=== PATIENT | female | born 1955 | race Caucasian/White ===

== ENCOUNTER → 2018-01-05 | Outpatient (CLI) | payer OTHER ==
[~2018-01-05] MED LIST: ALPR1TAB3 PO; AMBI5TAB PO; BACL10TA PO; COMMODE 3-IN-11 MIS; CPMMACHINE; FENO145T2 PO; HYDR-3576 PO; HYDR-3583 PO; LEVO100T5 PO; LISI10TA3 PO; PLAV75TA29 PO; PROT40TA PO; SERT-129 PO; SIMV80TA PO; VERA80TA PO; WALKER WHEELS/F1 MIS; ZOLP5TAB3 PO
== END ==
LOC: CPRE 11:28
PROVIDERS: ATTEND Orthopaedic Surgery
DX: M17.11 Unilateral primary osteoarthritis, right knee (principal)

== ENCOUNTER 2018-01-14 05:18 | Inpatient (IN) | payer OTHER ==
[~2018-01-14] VITALS: Ht 162.6 cm; Wt 81.4 kg
[~2018-01-14 05:18] MED LIST changes: -COMMODE 3-IN-11 MIS; -CPMMACHINE; -HYDR-3576 PO; -WALKER WHEELS/F1 MIS
[2018-01-14] MEDS ORDERED: CHLORHEXIDINE GLUCONATE 2 % 1 PACK (2 CLOTHS) TOPICAL PRN (06:15)
[2018-01-14] MEDS ORDERED: DEXAMETHASONE SOD PHOS PF 10 MG/ML VIAL IV PUSH ONE (06:15)
[2018-01-14] MEDS ORDERED: CEFAZOLIN INJ 2,000 MG in SODIUM CHLORIDE 0.9% INJ 100 ML IV SCH (06:15)
[2018-01-14] MEDS ORDERED: VANCOMYCIN 1 GM/200 ML INJ 200 ML IV SCH (06:15)
[2018-01-14] MEDS ORDERED: POVIDONE IODINE 5% (ANTISEPSIS KIT) 4 APPLICATIONS EACH NARE PRN (06:15)
[2018-01-14] MEDS ORDERED: LACTATED RINGER'S 1000 ML IV PRN (06:15)
[2018-01-14] MEDS ORDERED: CHLORHEXIDINE GLUCONATE 4% SOLN 120 ML BTL TOPICAL SCH (06:15)
[2018-01-14] MEDS ORDERED: SODIUM CHLORID 0.9% 500 ML IV PRN (06:15)
[2018-01-14] MEDS ORDERED: POVIDONE IODINE 7.5% SCRUB 118 ML BOTTLE TOPICAL SCH (06:15)
[2018-01-14] MEDS ORDERED: METOPROLOL TARTRATE 25 MG TAB PO PRN (06:15)
[2018-01-14] MEDS ORDERED: APREPITANT 40 MG CAP ONE (06:56)
[2018-01-14] MEDS ORDERED: FAMOTIDINE 20 MG/2 ML VIAL ONE (06:56)
[2018-01-14] MEDS ORDERED: GENTAMICIN SULFATE 80 MG/2 ML VIAL ONE (06:59)
--- NOTE | 2018-01-14 07:02 | HHI.DCPOC ---
Discharge Care Plan Diagnosis: (1) Primary localized osteoarthrosis, lower leg (2) Status post total knee replacement, right Goals to Promote Your Health * To prevent worsening of your condition and complications * To maintain your health at the optimal level Directions to Meet Your Goals Take your medications as prescribed Follow your dietary instruction Follow activity as directed Keep your appointments as scheduled Take your immunizations and boosters as scheduled If your symptoms worsen call your PCP, if no PCP go to Urgent Care Center or Emergency Room Smoking is Dangerous to Your Health. Avoid second hand smoke Call the 24-hour hour crisis hotline for domestic abuse at Matt Granados Jan 14, 2018 07:02
[2018-01-14] MEDS ORDERED: SODIUM CHLOR 0.9% 250 ML INJ 250 ML ONE (07:05)
[2018-01-14] MEDS ORDERED: VANCOMYCIN HCL 1000 MG VIAL ONE (07:05)
[2018-01-14] MEDS ORDERED: FAT EMULSION 20% INJ 0 ML ONE (07:06)
--- NOTE | 2018-01-14 07:16 | HHI.FF ---
Face to Face Verification Diagnosis: (1) Primary localized osteoarthrosis, lower leg (2) Status post total knee replacement, right Physical Therapy Gait training, Transfer training, bed to chair Knee: Total knee Right LE Weight Bearing: WB as tolerated Right LE Range of Motion: Active ROM Nursing Nursing: Peter teaching Dressing Changes: Do not change dressing Additional Instructions First dressing change in office I have seen patient Kerri Singleton on 01/14/18. My clinical findings support the need for the requested home health care services because: Limited ability to care for self High risk of falls I certify that my clinical findings support that this patient is homebound because: Post-op weakness Unsteady gait/balance Matt Granados Jan 14, 2018 07:16
[2018-01-14] MEDS ORDERED: COMMODE 3-IN-11 MIS (07:18)
[2018-01-14] MEDS ORDERED: WALKER WHEELS/F1 MIS (07:18)
[2018-01-14] MEDS ORDERED: CPMMACHINE (07:18)
[2018-01-14] MEDS ORDERED: MIDAZOLAM HCL 2 MG/2 ML VIAL ONE (07:29)
[2018-01-14] MEDS ORDERED: BUPIVACAINE LIPOSOME PF 1.3% 20 ML VIAL ONE (07:29)
[2018-01-14] MEDS ORDERED: ACETAMINOPHEN 1000 MG/100 ML 100 ML IV ONE (07:32)
[2018-01-14] MEDS ORDERED: FAMOTIDINE 20 MG/2 ML VIAL IV ONE (08:30)
[2018-01-14] MEDS ORDERED: SODIUM CHLORIDE 0.9% IV SCH ×2 (08:30→12:00)
[2018-01-14] MEDS ORDERED: APREPITANT 40 MG CAP PO ONE (08:30)
[2018-01-14] MEDS ORDERED: TRANEXAMIC ACID IV SCH ×2 (08:30→12:00)
[2018-01-14] MEDS ORDERED: ROPIVACAINE PERI-ARTICULAR INJECTION. P-ARTICULR SCH ×5 (08:30)
[2018-01-14] MEDS ORDERED: VASOPRESSIN 20 UNITS/ML VIAL ONE (09:44)
--- NOTE | 2018-01-14 10:25 | PD.OP ---
cc: Donaldo Paredes MD Operative Report Date of Surgery: Jan 14, 2018 Preoperative Diagnosis: Right knee severe osteoarthritis Postoperative Diagnosis: Same Procedure: Right total knee arthroplasty Anesthesia: Adductor canal block and general Surgeon: Donaldo Paredes Nurse Case Manager(s): NIKKI Escobar The surgical procedure was assisted by my Advanced Registered Nurse Practitioner. My FACILITY MAINTENANCE TECHNICIAN presence was necessary throughout this case for the manipulation and positioning of the surgical extremity. My FACILITY MAINTENANCE TECHNICIAN was assisting me throughout the duration of this procedure. The skill set of an Advance Registered Nurse Practitioner was medically necessary to complete this procedure. During the surgical case, the surgical dressing maker was working at the back table and the Advance Registered Nurse Practitioner was directly assisting me. Operation and Findings: IMPLANTS: DePuy Attune: Patella: size 32. Femur, posterior stabilized size 6. Tibia, rotating platform size 4. Tibial insert, rotating platform, posterior stabilized size 5 mm thickness. ESTIMATED BLOOD LOSS: 100 cc TOURNIQUET TIME: 43 minutes at 250 mmHg pressure. JUSTIFICATION FOR PROCEDURE: The patient has end-stage osteoarthritis to the knee. There is an attached conservative measures pathway form in the chart that describes the nonoperative measures that were undertaken prior to consideration of surgical management. The patient understood the risks and benefits of surgical management. See my office notes for further details PROCEDURE: The patient was brought back to the operative theatre. Adequate anesthesia was obtained. The patient received intravenous vancomycin and Ancef. The lower extremity was prepped and draped in the usual sterile fashion.The leg was exsanguinated, the tourniquet was raised. A standard anterior incision was performed followed by medial parapatellar arthrotomy was performed. End-stage arthritis was identified. Osteotomy of the patella was performed. We drilled holes for the patella. We trialed the patella component. We placed an intramedullary guide into the distal femur. We ultimately resected 13 mm off of the distal femur in 5 degrees of valgus. The remnants of the ACL and PCL were resected. Osteotomy of the proximal tibia was performed, resecting 5 mm off of the medial side. This was done with 3 degrees of posterior slope using an extramedullary guide. The distal end of the guide was placed in the mid aspect of the ankle. The femur was sized, and four chamfer cuts were completed in 3 of external rotation. We then cut the central box in the distal femur to replace the PCL. We resected the remnants of the menisci and removed osteophytes off of the femur and tibia. We then trialed the knee. We punched the tibia for the keel, and then used standard technique to cement in components. Excess cement was removed. We trialed the knee again and the final polyethylene thickness was chosen to provide extension to 0 degrees, and flexion of 140 degrees to gravity. The ligaments were appropriately balanced. Lateral release was necessary to obtain excellent patellofemoral tracking. The tourniquet was released and adequate hemostasis was obtained. An intra- articular injection of a ropivacaine cocktail was injected. The posterior knee was inspected for excess cement, which was removed. The final polyethylene was put into position after thorough irrigation. We then closed deep fascia with a #2 Stratafix followed by skin with 2-0 Vicryl followed by Dermabond mesh dressing. Postop plan is to weight-bear as tolerated. DVT prophylaxis will be performed with Bjorn, BLANCA randall, early mobilization, and Lovenox followed by aspirin. Donaldo Paredes MD Jan 14, 2018 10:24
[2018-01-14] MEDS ORDERED: MAGNESIUM HYDROXIDE SUSP 30 ML CUP PO PRN (10:30)
[2018-01-14] MEDS ORDERED: diphenhydrAMINE HCL 50 MG/ML VIAL IV PUSH PRN (10:30)
[2018-01-14] MEDS ORDERED: NALOXONE HCL 0.4 MG/ML AMP IV PUSH PRN (10:30)
[2018-01-14] MEDS ORDERED: ONDANSETRON HCL 4 MG/2 ML VIAL IVP PRN (10:30)
[2018-01-14] MEDS ORDERED: MORPHINE SULFATE 2 MG/ML SYRINGE IV PUSH PRN (10:30)
[2018-01-14] MEDS ORDERED: BISACODYL 10 MG SUPP RECTAL PRN (10:30)
[2018-01-14] MEDS ORDERED: ALUMINUM/MAGNESIUM/SIMETH 30 ML CUP PO PRN (10:30)
[2018-01-14] MEDS ORDERED: oxyCODONE/ACETAMINOPHEN 10 MG/325 MG TAB PO PRN (10:30)
[2018-01-14] MEDS ORDERED: DO NOT ADM ANY ANTICOAGULANT DRUGS PRN (10:49)
[2018-01-14] MEDS ORDERED: MORPHINE SULFATE 4 MG/ML INJ ONE (10:56)
[2018-01-14] MEDS ORDERED: Post-op Orders (for Pharmacy) XX ONE (11:00)
[2018-01-14] MEDS ORDERED: *morphine SULFATE 8 MG/ML PERIprocedure ONLY ONE ×2 (11:00→11:29)
[2018-01-14] MEDS ORDERED: *MEPERIDINE 25 MG INJ VIAL PERIprocedural Use ONLY ONE (11:10)
[2018-01-14] MEDS ORDERED: HYDROmorphone HCL PF 2 MG/ML VIAL ONE (11:39)
[2018-01-14] MEDS ORDERED: GLYCOPYRROLATE 1 MG/5 ML SYRINGE IV PUSH ONE (12:00)
[2018-01-14] MEDS ORDERED: ONDANSETRON HCL 4 MG/2 ML VIAL IV PUSH ONE (12:00)
[2018-01-14] MEDS: SODIUM CHLOR 0.9% 1000 ML INJ 1,000 ML IV SCH ×3 (12:00→22:06)
[2018-01-14] MEDS ORDERED: LIDOCAINE HCL 1% PF 5 ML SYRINGE OTHER ONE (12:00)
[2018-01-14] MEDS ORDERED: ePHEDrine/NS 25 MG/5 ML SYRINGE IV ONE (12:00)
[2018-01-14] MEDS ORDERED: ROCURONIUM INJ 50 MG/5 ML SYRINGE IV PUSH ONE (12:00)
[2018-01-14] MEDS ORDERED: PROPOFOL 200 MG/20 ML AMP IV ONE (12:00)
[2018-01-14] MEDS ORDERED: LACTATED RINGER'S 1000 ML INJ 1,000 ML IV ONE (12:00)
[2018-01-14] MEDS ORDERED: NEOSTIGMINE 5 MG/5 ML SYRINGE IV PUSH ONE (12:00)
[2018-01-14] MEDS ORDERED: PHENYLEPH/NS 1000 MCG/10 ML SYR IV ONE (12:00)
--- NOTE | 2018-01-14 12:33 | RADRPT ---
EXAM DATE/TIME: 01/14/2018 11:28 [facility] COMPARISON: No previous studies available for comparison. INDICATIONS : Post op right knee surgery. MEDICAL HISTORY : None. SURGICAL HISTORY : None. ENCOUNTER: Initial ACUITY: 1 day PAIN SCORE: Non-responsive. LOCATION: Right knee. FINDINGS: The patient is status post right total knee replacement. The prosthetic components appear well-placed . Air seen within the soft tissues and knee joint which is an expected finding following surgery. CONCLUSION: Successful placement of a total knee prosthesis. Edgar Puentes MD on January 14, 2018 at 12:27 Board Certified Radiologist. This report was verified electronically.
[2018-01-14 15:21] VITALS: BP 109/55; PULSE 97; RESP 16; TEMP 97.9; O2SAT 96
[2018-01-14] MEDS: oxyCODONE/ACETAMINOPHEN 10 MG/325 MG TAB PO PRN (18:46)
[2018-01-14 20:05] VITALS: BP 111/55; PULSE 94; RESP 16; TEMP 98; O2SAT 95
[2018-01-14] MEDS: ALPRAZolam 1 MG TAB PO PRN (20:10)
[2018-01-14] MEDS: SERTRALINE HCL 100 MG TAB PO SCH (20:10)
[2018-01-14] MEDS: ATORVASTATIN 40 MG TAB PO SCH (20:10)
[2018-01-14 20:49] VITALS: O2SAT 98
[2018-01-14] MEDS ORDERED: ZOLPIDEM TARTRATE 5 MG TAB PO PRN (21:00)
[2018-01-14 23:50] VITALS: BP 113/56; PULSE 89; RESP 16; TEMP 97.5; O2SAT 94
[2018-01-15] MEDS: oxyCODONE/ACETAMINOPHEN 10 MG/325 MG TAB PO PRN ×5 (02:32→21:36)
[2018-01-15 04:30] VITALS: BP 99/48; PULSE 79; RESP 16; TEMP 97.8; O2SAT 96
[2018-01-15] MEDS: LEVOTHYROXINE SODIUM 100 MCG TAB PO SCH (05:16)
[2018-01-15 05:28] LABS: HEMATOCRIT 29.2 % (35.0-46.0); MEAN CELL VOLUME 83.8 FL (80.0-100.0); MEAN CORPUSCULAR HEMOGLOBIN 28.7 PG (27.0-34.0); MEAN CORPUSCULAR HGB CONC 34.2 % (32.0-36.0); MEAN PLATELET VOLUME 8.9 FL (7.0-11.0); PLATELET COUNT 157 TH/MM3 (150-450); RED BLOOD COUNT 3.48 MIL/MM3 (4.00-5.30); RED CELL DISTRIBUTION WIDTH 12.1 % (11.6-17.2)
[2018-01-15 07:28] VITALS: BP 112/56; PULSE 86; RESP 18; TEMP 98.1; O2SAT 98
[2018-01-15] MEDS ORDERED: DEXAMETHASONE SOD PHOS 20 MG/5 ML VIAL IV ONE (07:45)
[2018-01-15] MEDS: FENOFIBRATE 145 MG TAB PO SCH (07:55)
[2018-01-15] MEDS: PANTOPRAZOLE SOD 40 MG DELAYED RELEASE TAB PO SCH (07:56)
[2018-01-15] MEDS: LISINOPRIL 10 MG TAB PO SCH (07:56)
[2018-01-15] MEDS: BACLOFEN 10 MG TAB PO SCH (07:56)
[2018-01-15] MEDS ORDERED: VERAPAMIL HCL 80 MG TAB PO SCH (09:00)
[2018-01-15] MEDS: SERTRALINE HCL 100 MG TAB PO SCH ×2 (10:34→20:41)
[2018-01-15] MEDS: ENOXAPARIN SODIUM 40 MG/0.4 ML SYRINGE SQ SCH (10:35)
[2018-01-15 11:33] VITALS: BP 95/50; PULSE 76; RESP 18; TEMP 98.1; O2SAT 96
--- NOTE | 2018-01-15 12:08 | PD.CONS ---
HPI Service [facility] Hospitalists Consult Requested By Dr. Paredes Reason for Consult Postoperative medical management Primary Care Physician Sammy Oliva MD Diagnoses: History of Present Illness This a 62-year-old female patient with past medical history which includes osteoarthritis right knee, anxiety, hypertension, coronary artery disease with cardiac stents, hyperlipidemia, depression, GERD, hypothyroidism. On 01/14/2018 patient underwent a right total knee arthroplasty with Dr. Paredes. We have been consulted for assistance with postoperative medical management. Patient is dressed ambulating to ortho joint class. Offers no complaints/concerns at this time. Denies N/V. chest pain, SOB, fevers or chills. Review of Systems Constitutional: COMPLAINS OF: Fatigue, DENIES: Fever, Chills Respiratory: DENIES: Cough, Sputum production, Shortness of breath Cardiovascular: DENIES: Chest pain, Palpitations, Dyspnea on Exertion Gastrointestinal: DENIES: Abdominal pain, Nausea, Vomiting Neurologic: DENIES: Headache, Speech Problems Psychiatric: DENIES: Anxiety, Confusion, Depression Past Family Social History Past Medical History hypertension, coronary artery disease with cardiac stents, hyperlipidemia, depression, GERD Past Surgical History Bilateral carpal tunnel surgery, total abdominal hysterectomy, tonsils and adenoidectomy, right knee arthroscopic, left shoulder arthroscopic Reported Medications Plavix (Clopidogrel Bisulfate) 75 Mg Tab 75 Mg PO DAILY Lisinopril 10 Mg Tab 10 Mg PO DAILY Protonix (Pantoprazole Sodium) 40 Mg Tab 40 Mg PO DAILY Zolpidem (Zolpidem Tartrate) 5 Mg Tab 5 Mg PO HS PRN Hydrocodone-Acetaminophen 10-325 mg Tab 1 Tab PO Q6H PRN Baclofen 10 Mg Tab 10 Mg PO DAILY Simvastatin 80 Mg Tab 80 Mg PO HS Alprazolam 1 Mg Tab 1 Mg PO DAILY PRN Fenofibrate 145 Mg Tab 145 Mg PO DAILY Sertraline (Sertraline HCl) 100 Mg Tab 100 Mg PO BID Levothyroxine (Levothyroxine Sodium) 100 Mcg Tab 100 Mcg PO DAILY Allergies: Coded Allergies: niacin (Verified Allergy, Severe, Rash, 01/05/18) Family History Family history includes hypertension, cardiovascular disease, CVA, diabetes mellitus, hypertension and rheumatoid arthritis Social History EtOH use approximately once per week Denies current tobacco use quit smoking at age 36 Physical Exam Vital Signs Vital Signs Date Time Temp Pulse Resp B/P (MAP) Pulse Ox O2 Delivery O2 Flow Rate FiO2 01/15/18 11:33 98.1 76 18 95/50 (65) 96 01/15/18 07:28 98.1 86 18 112/56 (74) 98 01/15/18 04:30 97.8 79 16 99/48 (65) 96 01/14/18 23:50 97.5 89 16 113/56 (75) 94 01/14/18 20:49 98 01/14/18 20:05 98.0 94 16 111/55 (73) 95 01/14/18 15:21 97.9 97 16 109/55 (73) 96 01/14/18 15:00 97.6 89 16 101/58 (72) 95 Room Air 01/14/18 14:00 90 16 104/63 (77) 94 Room Air 01/14/18 13:00 92 16 106/60 (75) 99 Nasal Cannula 3 01/14/18 12:09 15 01/14/18 12:09 15 01/14/18 12:00 97.8 85 16 109/59 (76) 97 Nasal Cannula 3 Physical Exam GENERAL: This is a well-nourished, well-developed patient, in no apparent distress. SKIN: Postoperative dressing in place dry and intact HEAD: Atraumatic. Normocephalic. No temporal or scalp tenderness. EYES: Extraocular motions intact. No scleral icterus. No injection or drainage. CARDIOVASCULAR: Regular rate and rhythm RESPIRATORY: Clear to auscultation. Breath sounds equal bilaterally. GASTROINTESTINAL: Abdomen soft, non-tender, nondistended. MUSCULOSKELETAL: Extremities without clubbing, cyanosis, or edema. No joint tenderness, effusion, or edema noted. No calf tenderness. Negative Homans sign bilaterally. NEUROLOGICAL: Awake and alert. Motor and sensory grossly within normal limits. Five out of 5 muscle strength in all muscle groups, with the exception of postoperative lower extremity. Normal speech. Laboratory Laboratory Tests Test 01/15/18 03:55 White Blood Count 11.0 Red Blood Count 3.48 Hemoglobin 10.0 Hematocrit 29.2 Mean Corpuscular Volume 83.8 Mean Corpuscular Hemoglobin 28.7 Mean Corpuscular Hemoglobin Concent 34.2 Red Cell Distribution Width 12.1 Platelet Count 157 Mean Platelet Volume 8.9 Result Diagram: 01/15/18 8260 Imaging Last Impressions Knee X-Ray 01/14/18 1019 Signed Impressions: Service Date/Time: Sunday, January 14, 2018 11:28 - CONCLUSION: Successful placement of a total knee prosthesis. Edgar Puentes MD Assessment and Plan Problem List: (1) Osteoarthritis ICD Codes: M19.90 - Unspecified osteoarthritis, unspecified site Plan: This a 62-year-old female patient with past medical history which includes osteoarthritis right knee, anxiety, hypertension, coronary artery disease with cardiac stents, hyperlipidemia, depression, GERD, hypothyroidism. On 01/14/2018 patient underwent a right total knee arthroplasty with Dr. Paredes. We have been consulted for assistance with postoperative medical management. Osteoarthritis right knee Patient underwent right total knee arthroplasty with Dr. Paredes on 01/14/2018 Percocet as needed for pain PT Patient currently on Lovenox 40 mg every 24 for DVT prophylaxis Hypertension Continue patient's home lisinopril 10 mg p.o. daily with hold parameters Monitor blood pressures blood pressures likely to be lower while on narcotic pain medication postoperatively Anxiety/depression Continue patient's home sertraline 100 mg p.o. twice daily and alprazolam 1 mg p.o. daily as needed for anxiety Coronary artery disease Patient's Plavix is on hold per arthritic surgery as patient is one day postop Recommend resuming Plavix once cleared cleared by orthopedic surgery GERD Continue patient's home Protonix 40 mg p.o. daily Hypothyroidism Continue patients on levothyroxine 100 mcg p.o. daily Assessment and Plan Patient examined. Assessment and plan formulated with Dina Booker PA-C. I agree with the above. Dina Booker Jan 15, 2018 12:08 Obed Hernandes DO Jan 16, 2018 23:42
--- NOTE | 2018-01-15 12:41 | PD.ORT.PN ---
Subjective Post Op Day #: 1 Subjective Remarks Patient is resting comfortably in bed with minimal pain to the right knee. Patient requesting to stay an additional night as she is waiting on her equipment. Objective Vitals Vital Signs Date Time Temp Pulse Resp B/P (MAP) Pulse Ox O2 Delivery O2 Flow Rate FiO2 01/15/18 11:33 98.1 76 18 95/50 (65) 96 01/15/18 07:28 98.1 86 18 112/56 (74) 98 01/15/18 04:30 97.8 79 16 99/48 (65) 96 01/14/18 23:50 97.5 89 16 113/56 (75) 94 01/14/18 20:49 98 01/14/18 20:05 98.0 94 16 111/55 (73) 95 01/14/18 15:21 97.9 97 16 109/55 (73) 96 01/14/18 15:00 97.6 89 16 101/58 (72) 95 Room Air 01/14/18 14:00 90 16 104/63 (77) 94 Room Air 01/14/18 13:00 92 16 106/60 (75) 99 Nasal Cannula 3 I/O 01/14/18 01/14/18 01/14/18 01/15/18 01/15/18 01/15/18 07:00 15:00 23:00 07:00 15:00 23:00 Intake Total 2048.16 ml 580 ml 840 ml Output Total 750 ml Balance 1298.16 ml 580 ml 840 ml Intake Oral 240 ml 480 ml 740 ml IV Total 508.16 ml 100 ml 100 ml Other 1300 ml Output Urine Total 550 ml Estimated Blood Loss 200 ml # Voids 3 4 # Bowel Movements 0 Result Diagram: 01/15/18 0355 Procedures Right TKA Objective Remarks Dressing is C/D/I. EHL/TA/G intact. 2+ pedal pulse. Calf is soft and nontender. SILT distally. Assessment & Plan Ortho Post Op Day #: 1 Problem List: Assessment and Plan POD #1: Right TKA 1. WBAT RLE 2. Lovenox for DVT prophylaxis for 10 days and then resume normal dose of Plavix 3. Ice to the right knee PRN 4. Stable per ortho for discharge this afternoon or private advisor. Patient awaiting delivery of supplies. 5. F/U in the office with Dr. Paredes or NIKKI Mccall as previously scheduled. Matt Granados Jan 15, 2018 12:41
[2018-01-15 15:41] VITALS: BP 109/58; PULSE 84; RESP 18; TEMP 98.3; O2SAT 94
[2018-01-15] MEDS: SODIUM CHLOR 0.9% 1000 ML INJ 1,000 ML IV SCH ×2 (16:45→18:43)
[2018-01-15 20:00] VITALS: BP 114/56; PULSE 77; RESP 18; TEMP 98.1; O2SAT 95
[2018-01-15] MEDS: DOCUSATE SODIUM 100 MG CAP PO SCH (20:40)
[2018-01-15] MEDS: ALPRAZolam 1 MG TAB PO PRN (20:40)
[2018-01-15] MEDS: ATORVASTATIN 40 MG TAB PO SCH (20:40)
[2018-01-15] MEDS: MULTIVITAMINS/MINERALS THERAPEUTIC TAB PO SCH (20:41)
[2018-01-16 00:10] VITALS: BP 148/65; PULSE 78; RESP 18; TEMP 97.7; O2SAT 95
[2018-01-16] MEDS: oxyCODONE/ACETAMINOPHEN 10 MG/325 MG TAB PO PRN ×3 (02:05→11:38)
[2018-01-16] MEDS: LEVOTHYROXINE SODIUM 100 MCG TAB PO SCH (05:24)
[2018-01-16 08:00] VITALS: BP 125/58; PULSE 84; RESP 16; TEMP 98; O2SAT 96
[2018-01-16 08:23] LABS: HEMATOCRIT 28.2 % (35.0-46.0); HEMOGLOBIN 9.7 GM/DL (11.6-15.3); MEAN CELL VOLUME 84.6 FL (80.0-100.0); MEAN CORPUSCULAR HGB CONC 34.3 % (32.0-36.0); MEAN PLATELET VOLUME 8.9 FL (7.0-11.0); PLATELET COUNT 148 TH/MM3 (150-450); RED BLOOD COUNT 3.33 MIL/MM3 (4.00-5.30); RED CELL DISTRIBUTION WIDTH 12.5 % (11.6-17.2); WHITE BLOOD COUNT 6.7 TH/MM3 (4.0-11.0)
[2018-01-16] MEDS: MULTIVITAMINS/MINERALS THERAPEUTIC TAB PO SCH (08:50)
[2018-01-16] MEDS: FENOFIBRATE 145 MG TAB PO SCH (08:50)
[2018-01-16] MEDS: PANTOPRAZOLE SOD 40 MG DELAYED RELEASE TAB PO SCH (08:51)
[2018-01-16] MEDS: LISINOPRIL 10 MG TAB PO SCH (08:51)
[2018-01-16] MEDS: BACLOFEN 10 MG TAB PO SCH (08:51)
[2018-01-16] MEDS: SERTRALINE HCL 100 MG TAB PO SCH (08:51)
[2018-01-16] MEDS: SODIUM CHLOR 0.9% 1000 ML INJ 1,000 ML IV SCH (08:52)
[2018-01-16] MEDS: DOCUSATE SODIUM 100 MG CAP PO SCH (08:52)
[2018-01-16] MEDS: ENOXAPARIN SODIUM 40 MG/0.4 ML SYRINGE SQ SCH (08:52)
--- NOTE | 2018-01-19 16:12 | HHI.DS ---
Discharge Summary Admission Date Jan 14, 2018 at 05:18 Discharge Date: Jan 16, 2018 Admitting Diagnosis Primary localized osteoarthritis of the lower leg Status post total knee replacement, RIGHT Diagnosis: (1) Primary localized osteoarthrosis, lower leg Diagnosis: Principal ICD Codes: M17.10 - Unilateral primary osteoarthritis, unspecified knee (2) Status post total knee replacement, right Diagnosis: Principal ICD Codes: Z96.651 - Presence of right artificial knee joint Procedures Right TKA Brief History This is a 62 year old female patient with severe osteoarthritis of the RIGHT knee CBC/BMP: 01/16/18 0723 PE at Discharge Dressing is C/D/I. EHL/TA/G intact. 2+ pedal pulse. Calf is soft and nontender. SILT distally. Hospital Course The patient was admitted to the hospital with severe osteoarthritis of the RIGHT knee for a RIGHT total knee arthroplasty. The patient's surgery went well with no complication. The patient is weightbearing as tolerated. The patient is on a regular diet. The patient was placed on Lovenox initially and then will transition to her normal dose of Plavix. The patient was discharged home with home health and will follow up in the office with Dr. Coyne or NIKKI Mccall as previously scheduled. Pt Condition on Discharge: Stable Discharge Disposition: Disch w/ Home Health Serv Discharge Instructions Diet Instructions: As Tolerated, No Restrictions Activities You Can Perform: Weight Bearing as Domenico Activities to Avoid: Strenuous Activity Follow up Referrals: Appointment for Follow Up - 2 Weeks @ [facility] New Medications: Commode 3-in-1 (Commode 3-in-1) 1 Mis Mis EA .XX DIRECTED, #1 0 Refills CPM-Continuous Passive Motion Machine (CPM-Continuous Passive Motion Machine) 1 Ea Device EA .XX DIRECTED, #1 0 Refills Walker with Front Wheels (Walker with Front Wheels) 1 Mis Mis EA .XX DIRECTED, #1 0 Refills Continued Medications: Alprazolam (Alprazolam) 1 Mg Tab 1 MG PO DAILY PRN for ANXIETY, TAB 0 Refills Baclofen (Baclofen) 10 Mg Tab 10 MG PO DAILY, TAB 0 Refills Fenofibrate (Fenofibrate) 145 Mg Tab 145 MG PO DAILY, #30 TAB 0 Refills Levothyroxine (Levothyroxine) 100 Mcg Tab 100 MCG PO DAILY for Thyroid, #30 TAB 0 Refills Lisinopril (Lisinopril) 10 Mg Tab 10 MG PO DAILY, #30 TAB 0 Refills Pantoprazole (Protonix) 40 Mg Tab 40 MG PO DAILY for Reflux, #30 TAB 0 Refills Sertraline (Sertraline) 100 Mg Tab 100 MG PO BID, #30 TAB 0 Refills Simvastatin (Simvastatin) 80 Mg Tab 80 MG PO HS for Cholesterol Management, #30 TAB 0 Refills Zolpidem (Zolpidem) 5 Mg Tab 5 MG PO HS PRN for INSOMNIA, TAB 0 Refills Discontinued Medications: Clopidogrel (Plavix) 75 Mg Tab 75 MG PO DAILY for Blood Clot Prevention, #30 TAB 0 Refills Hydrocodone-Acetaminophen (Hydrocodone-Acetaminophen) 10-325 mg Tab 1 TAB PO Q6H PRN for PAIN, TAB 0 Refills Matt Granados Jan 19, 2018 16:12
== END 2018-01-16 12:40 | disposition home health service (06) | DRG 470 ==
LOC: HSDI 05:18 → N06A 15:22
PROVIDERS: ADMIT Orthopaedic Surgery; ATTEND Orthopaedic Surgery
PROC: 3E0T3BZ Introduction of Anesthetic Agent into Peripheral Nerves and Plexi, Percutaneous Approach (ICD-10-PCS; 2018-01-14)
PROC: 0SRC0J9 Replacement of Right Knee Joint with Synthetic Substitute, Cemented, Open Approach (ICD-10-PCS; principal; 2018-01-14 08:21)
DX: M17.11 Unilateral primary osteoarthritis, right knee (principal); I10 Essential (primary) hypertension; M25.761 Osteophyte, right knee; I25.10 Atherosclerotic heart disease of native coronary artery without angina pectoris; K21.9 Gastro-esophageal reflux disease without esophagitis; E78.5 Hyperlipidemia, unspecified; E03.9 Hypothyroidism, unspecified; F32.9 Major depressive disorder, single episode, unspecified; F41.9 Anxiety disorder, unspecified; Z87.891 Personal history of nicotine dependence; Z95.5 Presence of coronary angioplasty implant and graft
CPT/HCPCS: 73560; 85027; 85652; 86850; 86900; 86901; 94150; C1776; C9290; J0131; J0690; J0735; J1100; J1170; J1580; J1650; J1885; J2175; J2250; J2270; J2370; J2405; J2710; J2795; J3010; J3370; J7030; J7050; J7120; J8501; L1830

== ENCOUNTER 2018-01-22 13:21 | Emergency (ER) | payer OTHER ==
[~2018-01-22 13:21] MED LIST changes: -AMBI5TAB PO; +COMMODE 3-IN-11 MIS; +CPMMACHINE; -HYDR-3583 PO; -PLAV75TA29 PO; -VERA80TA PO; +WALKER WHEELS/F1 MIS
[2018-01-22 13:33] VITALS: BP 131/55; PULSE 79; RESP 16; TEMP 99; O2SAT 98
[2018-01-22] MEDS ORDERED: MORPHINE SULFATE 4 MG/ML INJ IV PUSH ONE ×2 (14:00→16:45)
[2018-01-22] MEDS ORDERED: ONDANSETRON HCL 4 MG/2 ML VIAL IV PUSH ONE (14:00)
--- NOTE | 2018-01-22 14:25 | RADRPT ---
EXAM DATE/TIME: 01/22/2018 13:56 [facility] COMPARISON: No previous studies available for comparison. INDICATIONS : Short of breath. MEDICAL HISTORY : Cardiac stent. SURGICAL HISTORY : Total knee replacement, right. ENCOUNTER: Initial ACUITY: 1 day PAIN SCORE: 0/10 LOCATION: Bilateral chest FINDINGS: A single view of the chest demonstrates the lungs to be symmetrically aerated with minimal atelectasi s or scarring in the left lower lobe. Lungs are otherwise clear. No effusions. The cardiomediastinal contours are unremarkable. Osseous structures are intact with a dextroscoliosis of the dorsal spine . CONCLUSION: Minimal atelectasis/scarring in the left lower lobe. Otherwise, lungs are clear. Nathan Johnston MD on January 22, 2018 at 14:17 Board Certified Radiologist. This report was verified electronically.
[2018-01-22 14:39] LABS: AUTOMATED NEUTROPHIL # 3.1 TH/MM3 (1.8-7.7); BASOPHIL % 0.6 % (0.0-2.0); BILIRUBIN, URINE NEG (NEG); BLOOD, URINE NEG (NEG); EOSINOPHIL # 0.1 TH/MM3 (0-0.4); EOSINOPHIL % 1.8 % (0.0-4.0); GLUCOSE,URINE NEG (NEG); HEMATOCRIT 30.2 % (35.0-46.0); HEMOGLOBIN 10.4 GM/DL (11.6-15.3); KETONE, URINE NEG (NEG); LYMPH % 23.4 % (9.0-44.0); LYMPHOCYTE # 1.1 TH/MM3 (1.0-4.8); MEAN CELL VOLUME 83.9 FL (80.0-100.0); MEAN CORPUSCULAR HGB CONC 34.6 % (32.0-36.0); MEAN PLATELET VOLUME 8.6 FL (7.0-11.0); MONO % 10.9 % (0.0-8.0); MONOCYTE # 0.5 TH/MM3 (0-0.9); NEUT % 63.3 % (16.0-70.0); NITRITE,URINE NEG (NEG); PH, URINE 7.5 (5.0-8.5); PLATELET COUNT 227 TH/MM3 (150-450); RED CELL DISTRIBUTION WIDTH 12.5 % (11.6-17.2); URINE COLOR LIGHT-YELLOW (YELLW/STRAW); URINE LEUKOCYTE ESTERASE NEG (NEG); WHITE BLOOD COUNT 4.9 TH/MM3 (4.0-11.0)
[2018-01-22 14:56] LABS: BICARBONATE 27.4 MEQ/L (21.0-32.0); BLOOD UREA NITROGEN 11 MG/DL (7-18); CALCIUM 8.9 MG/DL (8.5-10.1); CHLORIDE 107 MEQ/L (98-107); CREATININE 0.75 MG/DL (0.50-1.00); GLOMERULAR FILTRATION RATE 78 ML/MIN (>89); GLUCOSE,RANDOM 105 MG/DL (74-106); SODIUM (NA) 140 MEQ/L (136-145)
--- NOTE | 2018-01-22 14:56 | PD ---
HPI Chief Complaint: Respiratory Symptoms Time Seen by Provider: 13:40 Travel History International Travel<30 days: No Contact w/Intl Traveler<30days: No Traveled to known affect area: No History of Present Illness HPI This is a 62-year-old female who is 1 weeks post right knee replacement, presents today with complaints of shortness of breath. Patient reports that shortly after her surgery, she started experiencing shortness of breath. She reports that it is difficult to talk secondary to her shortness of breath. She denies any chest pain, chest pressure. She denies any productive cough but does state that she has had a slight cough. She denies fevers but reports chills. There are no other complaints at the time of my examination. PFSH Past Medical History Cancer: No Cardiovascular Problems: Yes (stent 2004) Diabetes: No Endocrine: Yes Genitourinary: No Hepatitis: No Hiatal Hernia: No Immune Disorder: No Musculoskeletal: Yes (arthritis) Neurologic: No Psychiatric: Yes (dep/anx) Reproductive: No Respiratory: No Thyroid Disease: Yes Past Surgical History Abdominal Surgery: No AICD: No Body Medical Devices: PINS IN BILATERAL SHOULDERS AND BILATERAL FEET, TAGS ON BILATERAL BREASTS Cardiac Surgery: Yes (stent) Ear Surgery: No Endocrine Surgery: No Genitourinary Surgery: No Gynecologic Surgery: Yes (hysterectomy) Joint Replacement: No Oral Surgery: Yes (T&A) Pacemaker: No Thoracic Surgery: No Social History Tobacco Use: No Substance Use: No Allergies-Medications (Allergen,Severity, Reaction): Coded Allergies: niacin (Verified Allergy, Severe, Rash, 01/22/18) Reported Meds & Prescriptions Reported Meds & Active Scripts Active Lorcet (Hydrocodone-Acetaminophen) 5-325 mg Tab 1 Tab PO Q6H PRN Walker with Front Wheels (Device) 1 Mis Mis Ea .XX DIRECTED CPM-Continuous Passive Motion Machine 1 Ea Device Ea .XX DIRECTED Commode 3-in-1 (Device) 1 Mis Mis Ea .XX DIRECTED Reported Lisinopril 10 Mg Tab 10 Mg PO DAILY Protonix (Pantoprazole Sodium) 40 Mg Tab 40 Mg PO DAILY Zolpidem (Zolpidem Tartrate) 5 Mg Tab 5 Mg PO HS PRN Baclofen 10 Mg Tab 10 Mg PO DAILY Simvastatin 80 Mg Tab 80 Mg PO HS Alprazolam 1 Mg Tab 1 Mg PO DAILY PRN Fenofibrate 145 Mg Tab 145 Mg PO DAILY Sertraline (Sertraline HCl) 100 Mg Tab 100 Mg PO BID Levothyroxine (Levothyroxine Sodium) 100 Mcg Tab 100 Mcg PO DAILY Review of Systems Except as stated in HPI: all other systems reviewed are Neg General / Constitutional: Positive: Chills, No: Fever HENT: No: Headaches, Neck Pain Cardiovascular: No: Chest Pain or Discomfort, Palpitations Respiratory: Positive: Cough, Shortness of Breath (Nonproductive), No: Wheezing Gastrointestinal: No: Nausea, Vomiting, Abdominal Pain Genitourinary: No: Frequency, Dysuria Musculoskeletal: Positive: Limited ROM (Secondary to pain), Edema, Pain, No: Weakness (Right knee) Neurologic: No: Weakness, Dizziness, Headache Physical Exam Narrative GENERAL: Well-developed well-nourished female in no acute respiratory distress. SKIN: Focused skin assessment warm/dry. HEAD: Atraumatic. Normocephalic. EYES: Pupils equal and round. No scleral icterus. No injection or drainage. ENT: No nasal bleeding or discharge. Mucous membranes pink and moist. NECK: Trachea midline. Supple. CARDIOVASCULAR: Regular rate and rhythm. No murmur appreciated. RESPIRATORY: No accessory muscle use. Clear to auscultation. Breath sounds equal bilaterally. GASTROINTESTINAL: Abdomen soft, non-tender, nondistended. Hepatic and splenic margins not palpable. MUSCULOSKELETAL: Slight edema compared to the left. There is no palpable cords. She does have fullness in the popliteal area. No evidence of cellulitis or drainage from the surgical site. Palpable dorsalis pedis pulses cap refill less than 3 seconds on the right lower extremity. NEUROLOGICAL: Awake and alert. No obvious cranial nerve deficits. Motor grossly within normal limits. Normal speech. Data Data Last Documented VS Vital Signs Date Time Temp Pulse Resp B/P (MAP) Pulse Ox O2 Delivery O2 Flow Rate FiO2 01/22/18 17:22 77 16 116/56 (76) 96 Room Air 01/22/18 13:33 99.0 Orders Orders Electrocardiogram (01/22/18 13:46) Complete Blood Count With Diff (01/22/18 13:46) Basic Metabolic Panel (Bmp) (01/22/18 13:46) Ckmb (Isoenzyme) Profile (01/22/18 13:46) Troponin I (01/22/18 13:46) Urinalysis - C+S If Indicated (01/22/18 13:46) Chest, Single Ap (01/22/18 13:46) Iv Access Insert/Monitor (01/22/18 13:46) Ecg Monitoring (01/22/18 13:46) Oximetry (01/22/18 13:46) Ct Pulmonary Angiogram (01/22/18 13:46) Us Leg Venous Doppler (01/22/18 13:46) Morphine Inj (Morphine Inj) (01/22/18 14:00) Ondansetron Inj (Zofran Inj) (01/22/18 14:00) Iohexol 350 Inj (Omnipaque 350 Inj) (01/22/18 16:02) Morphine Inj (Morphine Inj) (01/22/18 16:45) Labs Laboratory Tests Test 01/22/18 14:00 White Blood Count 4.9 TH/MM3 Red Blood Count 3.60 MIL/MM3 Hemoglobin 10.4 GM/DL Hematocrit 30.2 % Mean Corpuscular Volume 83.9 FL Mean Corpuscular Hemoglobin 29.0 PG Mean Corpuscular Hemoglobin Concent 34.6 % Red Cell Distribution Width 12.5 % Platelet Count 227 TH/MM3 Mean Platelet Volume 8.6 FL Neutrophils (%) (Auto) 63.3 % Lymphocytes (%) (Auto) 23.4 % Monocytes (%) (Auto) 10.9 % Eosinophils (%) (Auto) 1.8 % Basophils (%) (Auto) 0.6 % Neutrophils # (Auto) 3.1 TH/MM3 Lymphocytes # (Auto) 1.1 TH/MM3 Monocytes # (Auto) 0.5 TH/MM3 Eosinophils # (Auto) 0.1 TH/MM3 Basophils # (Auto) 0.0 TH/MM3 CBC Comment DIFF FINAL Differential Comment Urine Color LIGHT-YELLOW Urine Turbidity CLEAR Urine pH 7.5 Urine Specific [place] 1.007 Urine Protein NEG mg/dL Urine Glucose (UA) NEG mg/dL Urine Ketones NEG mg/dL Urine Occult Blood NEG Urine Nitrite NEG Urine Bilirubin NEG Urine Urobilinogen LESS THAN 2.0 MG/DL Urine Leukocyte Esterase NEG Urine RBC LESS THAN 1 /hpf Microscopic Urinalysis Comment CULT NOT INDICATED Blood Urea Nitrogen 11 MG/DL Creatinine 0.75 MG/DL Random Glucose 105 MG/DL Calcium Level 8.9 MG/DL Sodium Level 140 MEQ/L Potassium Level 3.7 MEQ/L Chloride Level 107 MEQ/L Carbon Dioxide Level 27.4 MEQ/L Anion Gap 6 MEQ/L Estimat Glomerular Filtration Rate 78 ML/MIN Total Creatine Kinase 46 U/L Troponin I LESS THAN 0.02 NG/ML MDM Medical Decision Making Medical Screen Exam Complete: Yes Emergency Medical Condition: Yes Differential Diagnosis Pneumonia versus pulmonary embolus versus metabolic derangement versus DVT Narrative Course 62-year-old female status post knee replacement 1 week prior, sent here by her orthopedic physician to rule out pulmonary embolus. Patient reportedly has had shortness of breath starting shortly after the surgery. The patient's right lower extremity shows no evidence of DVT. There is a Bautista cyst. CT pulmonary antrum shows no evidence of pulmonary embolus. I discussed the findings with the patient and her . She will be instructed to continue to use her incentive spirometer. She is also instructed to increase her activity. She has an appointment with Dr. Song, her orthopedic surgeon, on Friday. She has requested pain medication for home. I would told her I would write her for 20 Lortabs. CC: Dr. Donaldo Song. Diagnosis Primary Impression: Dyspnea Additional Impression: Status post total knee replacement, right Additional Instructions: Return if feeling worse. Follow-up with orthopedic surgeon as scheduled on Friday. Do not take pain medication while taking sleeping medicine and anxiety medication. Med/Other Pt SpecificInfo: Prescription(s) given Scripts Hydrocodone-Acetaminophen (Lorcet) 5-325 mg Tab 1 TAB PO Q6H Y for PAIN, #20 TAB 0 Refills Prov: Mark Chowdhury MD 01/22/18 Disposition: 01 DISCHARGE HOME Condition: Stable Mark Chowdhury MD Jan 22, 2018 14:56
[2018-01-22 15:00] LABS: TROPONIN I LESS THAN 0.02 NG/ML (0.02-0.05)
--- NOTE | 2018-01-22 15:28 | RADRPT ---
EXAM DATE/TIME: 01/22/2018 14:15 [facility] COMPARISON: No previous studies available for comparison. EXTERNAL COMPARISON : [facility], RT leg venous doppler, January 06, 2017 INDICATIONS : Right leg pain. MEDICAL HISTORY : Arthritis. Cardiovascular disease. Hypercholesterolemia. Thyroid disease. History of measles. Anti coagulant therapy, Lovenox. SURGICAL HISTORY : Coronary artery stent. Hysterectomy. Bilateral rotator cuff repair. RT torn bicep repair. RT knee a rthroscopy. Lumbar spine surgery. ENCOUNTER: Initial ACUITY: 1 week PAIN SCORE: 9/10 LOCATION: Right leg. TECHNIQUE: Venous ultrasound of the leg was performed from the inguinal ligament to the proximal calf. Real-xochitl e, color Doppler and spectral tracing, compression and augmentation techniques were used. FINDINGS: There is normal compressibility of the deep venous system from the inguinal region to the proximal ca lf. No echogenic clot is seen in the lumen of the common femoral, femoral, popliteal, and posterior tibial veins. There is a normal response of the venous system to proximal and distal augmentation an d respiration. A multiloculated complex fluid accumulation is identified in the right popliteal fossa. It measures 4 .2 x 1.7 x 7 cm in size. CONCLUSION: 1. No evidence of DVT. 2. Complex fluid collection in the right popliteal fossa characteristic of a Bautista's cyst. Palomo Lewis MD on January 22, 2018 at 15:20 Board Certified Radiologist. This report was verified electronically.
[2018-01-22] MEDS ORDERED: IOHEXOL 350 MG/ML 10 ML VIAL (for RAD DIAG) IVCONTRAST ONE (16:02)
--- NOTE | 2018-01-22 16:13 | RADRPT ---
EXAM DATE/TIME: 01/22/2018 15:57 [facility] COMPARISON: No previous studies available for comparison. INDICATIONS : Shortness of breath IV CONTRAST: 74 cc Omnipaque 350 (iohexol) IV RADIATION DOSE: 20.64 CTDIvol (mGy) MEDICAL HISTORY : Cardiovascular disease. Hypertension. SURGICAL HISTORY : Hysterectomy. Right total knee replacement ENCOUNTER: Initial ACUITY: 1 day PAIN SCALE: 0/10 LOCATION: chest TECHNIQUE: Volumetric scanning of the chest was performed using a pulmonary embolism protocol MIP images were re constructed. Using automated exposure control and adjustment of the mA and/or kV according to patien t size, radiation dose was kept as low as reasonably achievable to obtain optimal diagnostic quality images. DICOM format image data is available electronically for review and comparison. Follow-up recommendations for detected pulmonary nodules are based at a minimum on nodule size and pa tient risk factors according to Fleischner Society Guidelines. FINDINGS: PULMONARY ARTERIES: No filling defects are seen in the pulmonary arteries through the segmental level. LUNGS: There is no consolidation or pneumothorax . No concerning pulmonary nodule is visualized. Linear den sity left lower lobe anteriorly. PLEURAE: There is no pleural thickening or pleural effusion. MEDIASTINUM: There is good visualization of the great vessels of the middle mediastinum. No evidence of mediastin al or hilar adenopathy/mass. Appears to be a stent in LAD. MUSCULOSKELETAL: Within normal limits for patient age. MISCELLANEOUS: The visualized upper abdominal organs demonstrate no acute abnormality. CONCLUSION: 1. No evidence for pulmonary embolism. 2. No evidence for infiltrate or mass. 3. Minimal scarring left lower lobe. Jose Cruz Falk MD on January 22, 2018 at 16:09 Board Certified Radiologist. This report was verified electronically.
[2018-01-22 17:22] VITALS: BP 116/56; PULSE 77; RESP 16; O2SAT 96
[2018-01-22] MEDS ORDERED: HYDR-3576 PO (17:31)
--- NOTE | 2018-01-24 09:20 | EKG ---
Date Performed: 01/22/2018 Time Performed: 14:46:44 PTAGE: 62 years EKG: Sinus rhythm NORMAL ECG NO PREVIOUS TRACING DOCTOR: Bolivar Ramsey Interpretating Date/Time 01/24/2018 09:15:43
== END 2018-01-22 18:44 | disposition home or self-care (01) ==
LOC: NEPE 13:21
DX: R06.00 Dyspnea, unspecified (principal); R05 Cough; R68.83 Chills (without fever); E07.9 Disorder of thyroid, unspecified; Z98.890 Other specified postprocedural states; Z96.651 Presence of right artificial knee joint; Z86.79 Personal history of other diseases of the circulatory system; Z87.39 Personal history of other diseases of the musculoskeletal system and connective tissue; Z86.59 Personal history of other mental and behavioral disorders
CPT/HCPCS: 71045; 71275; 80048; 81001; 82550; 84484; 85025; 93005; 93971; 96374; 96375; 96376; 99285; J2270; J2405; Q9967